=== PATIENT | male | born 1945 | race Two or more races ===

== ENCOUNTER 2020-05-07 14:18 | Outpatient (CLI) | payer MEDICARE ==
[2020-05-07] MEDS ORDERED: Magnevist 469MG/ML 20 ML VIAL ONE (16:30)
--- NOTE | 2020-05-07 17:18 | MRI ---
MRI THORACIC SPINE WITH AND WITHOUT CONTRAST: 05/07/20 HISTORY: 75-year-old male with malignant neoplasm of prostate. Whole body bone scan shows tiny focus of increa sed uptake to the right of midline at the mid to lower thoracic spine at approximately T8 or T9 level . FINDINGS: At center midline in the far anterior edge of the spinous process of T8 vertebra, there is an approxi mately 0.9 x 0.5 x 0.7 cm focus of signal void on all pulse sequences. No associated enhancement. Although this is of a similar level to the lesion found on the bone scan, this particular MRI lesion is located at midline, while the lesion found on nuclear medicine is slightly to the right of midline . This MRI lesion corresponds to a sclerotic focal lesion on CT of abdomen and pelvis of 02/29/20. There is an osseous lesion at the right posterior inferior aspect of the T8 vertebral body with sligh tly irregular and slightly ill-defined margins, measuring approximately 1.4 x 1.2 x 0.8 cm. It is het erogeneously T1 hypointense, has heterogeneous patchy moderate hyperintensity on the STIR sequence, w ith patchy heterogeneous enhancement. This probably corresponds to the lesion found on the bone scan. There is chronic anterior wedge compression deformity of T12 vertebral body with no bony retropulsion and no abnormal enhancement. Conus medullaris terminates at L1-2. The rest of the vertebral body hei ghts are maintained. There are small focal disc protrusions and/or disc/osteophyte complexes protruding into the anterior aspect of the spinal canal. These are tiny at T2-3 and T3-4. Small midline at T6-7. Broad based small to moderate sized, centrally and bilateral paracentrally at T7-8 and T8-9. No cord impingement at an y level. A combination of this disc protrusion and mild ligamentum flavum thickening causes mild to m oderate central spinal canal stenosis at T8-9. There is multilevel mild to moderate bilateral neurofo raminal stenosis. No syringohydromyelia. No bone marrow edema. 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 No abnormal enhancement in the intramedullary, extramedullary-intradural, extradural, or jennifer vertebral spaces. IMPRESSION: 1. A lesion at the right inferior posterior aspect of the T8 vertebral body on this MRI probably corresponds to the lesion found on the bone scan. This could either be an active Schmorl's node or a solitary bone metastasis. The former is slightly favored. 2. Incidental finding of an osteoblastic/sclerotic lesion at the anterior aspect of T8 spinous p rocess at midline. This is favored to represent a bone island rather than an osteoblastic metastasis. 3. Thoracic spondylosis. 4. Recommend serial follow-up MRIs of the thoracic spine with and without contrast to follow the lesion at the right inferior aspect of the T8 vertebral body, beginning in 4 to 6 months. POS: OFF
== END 2020-05-07 14:19 | disposition home or self-care (01) ==
LOC: BICMRI 14:18
PROVIDERS: ATTEND Urology
DX: C61 Malignant neoplasm of prostate (principal); M47.814 Spondylosis without myelopathy or radiculopathy, thoracic region; M48.8X4 Other specified spondylopathies, thoracic region
CPT/HCPCS: 72157; 82565; A9579

== ENCOUNTER 2020-05-19 12:48 | Outpatient (CLI) | payer MEDICARE ==
--- NOTE | 2020-05-19 16:22 | MRI ---
MRI PELVIS (PROSTATE) WITH AND WITHOUT IV CONTRAST AND EVALUATION ON INDEPENDENT 3D WORKSTATION: Date: 05/19/2020 HISTORY: Prostate cancer. FINDINGS: The prostate measures 4.3 x 3.8 x 4.4 cm with a volume of 38 mL. There is a 2.5 cm focal area of restricted diffusion and low intensity on ADC map in the peripheral z one, predominantly on the right, and a small portion extending to the left of midline at the level of the mid gland. There is capsular extension and involvement of the right neurovascular bundle. No suspicious findings are seen in the transitional zone. No pelvic lymphadenopathy is seen. Seminal vesicles are normal. The pelvic side wall is normal. The bone marrow signal in the pelvis bones is wi thin normal limits. IMPRESSION: PI-RADS 5 - Very high (clinically significant cancer is highly likely to be present). POS: OFF
== END 2020-05-19 12:49 | disposition home or self-care (01) ==
LOC: TBSIIMAG 12:48
PROVIDERS: ATTEND Urology
DX: C61 Malignant neoplasm of prostate (principal)
CPT/HCPCS: 72197

== ENCOUNTER 2020-07-31 08:23 | Outpatient (CLI) | payer MEDICARE ==
--- NOTE | 2020-07-31 13:24 | RAD ---
EXAM: XR Cystogram STANDARD PROVIDED CLINICAL HISTORY: Prostate cancer history of recent prostatectomy. Evaluate for bladder leak. COMPARISON: None FINDINGS: Approximately 150 mL of Isovue-370 contrast was instilled into the urinary bladder via a Rm cathet er. There is evidence of extravasation of contrast at the level of the neck of the urinary bladder and projecting posterior to the urinary bladder at the junction with the prosthetic urethra. Contrast was drained from the urinary bladder with contrast persisting posterior to the urinary bladder. AP, oblique, and lateral projections were obtained. IMPRESSION: Evidence of a leak near the the junction of the neck of the urinary bladder and prostatic urethra.
== END 2020-07-31 08:24 | disposition home or self-care (01) ==
LOC: RAD 08:23
PROVIDERS: ATTEND Urology
DX: C61 Malignant neoplasm of prostate (principal)
CPT/HCPCS: 51600; 74430

== ENCOUNTER 2021-05-06 10:10 | Outpatient (CLI) | payer MEDICARE | END 2021-05-06 10:11 | disposition home or self-care (01) | LOC: NM 10:10 | PROVIDERS: ATTEND Radiology Radiation Oncology | DX: C61 Malignant neoplasm of prostate (principal) | CPT/HCPCS: 78306; A9503 ==

== ENCOUNTER 2022-02-27 17:13 | Inpatient (IN) | payer MEDICARE ==
[2022-02-27] MEDS ORDERED: Cefepime 2 GM VIAL ONE (17:50)
[2022-02-27] MEDS ORDERED: Acetaminophen 500 MG TAB ONE (17:50)
[2022-02-27 18:00] LABS: #Basophils 0.1 thou/uL (0.0-0.2); #Eosinphils 0.1 thou/uL (0.0-0.7); #Lymphocytes 1.7 thou/uL (1.20-3.40); #Monocytes 0.9 thou/uL (0.11-0.59); #Neutrophils 8.5 thou/uL (1.40-6.50); %Basophils 0.6 % (0.0-1.0); %Eosinophils 0.5 % (0.0-10.0); %Lymphocytes 15.2 % (21.0-51.0); %Monocytes 7.7 % (0.0-10.0); %Neutrophils 75.9 % (42.0-75.0); Hemoglobin 13.5 g/dL (14.0-18.0); Mean Corpuscular HGB CONC 35.8 g/dL (32.0-36.0); Mean Corpuscular Hemoglobin 33.4 pg (27.0-31.0); Mean Corpuscular Volume 93.4 fL (78.0-98.0); Mean Platelet Volume 9.2 fL (7.4-10.4); Platelet Count 200 thou/uL (130-400); RBC Distribution Width 11.5 % (11.5-14.5); Red Blood Cell (RBC) Count 4.05 mill/uL (4.70-6.10); White Blood Cell (WBC) Count 11.2 thou/uL (4.8-10.8)
[2022-02-27] MEDS ORDERED: VANCOMYCIN 1.75 GM/500 ML BAG 1.75 GM in Premix Bag 1 BAG IVPB SCH (18:00)
[2022-02-27 18:14] LABS: PTT 27.9 sec (22.9-36.1); Prothrombin Time 13.5 sec (12.0-14.7)
[2022-02-27 18:16] LABS: D-Dimer Test 0.34 *mcg/mL (0.27-0.43)
[2022-02-27 18:21] LABS: ALT (SGPT) 20 U/L (8-55); AST (SGOT) 19 U/L (5-34); Alkaline Phosphatase 88 U/L (40-110); Anion Gap 18 mmol/L (10-20); BUN (Urea Nitrogen) 27 mg/dL (8.4-25.7); Calc. Creatinine Clearance 0 mL/min (70-130); Calcium 8.8 mg/dL (7.8-10.44); Carbon Dioxide 21 mmol/L (23-31); Chloride 100 mmol/L (98-107); Estimated GFR 55; Globulin 3.6 g/dL (2.4-3.5); Glucose 371 mg/dL (83-110); Lipase 77 U/L (8-78); Magnesium 1.9 mg/dL (1.6-2.6); Potassium 3.6 mmol/L (3.5-5.1); Protein, Total 7.6 g/dL (5.8-8.1); Sodium 135 mmol/L (136-145)
[2022-02-27 18:55] LABS: Bacteria/HPF None Seen HPF (None Seen); Bilirubin Negative (Negative); Blood, Urine 2+ (Negative); Clarity Clear (Clear); Glucose, Urine (Dipstick) Greater than 1000 mg/dL (Negative); Ketone, Urine 20 mg/dL (Negative); Leukocyte Negative Leu/uL (Negative); Nitrite Negative (Negative); Protein, Urine (Dipstick) Negative (Neg-Trace); Specific Gravity, Urine 1.021 (1.002-1.036); Squamous Epithelial 0-3 HPF (0-3); Urobilinogen Normal mg/dL (Less than 2); WBC/HPF 0-3 HPF (0-3); pH, Urine 5.5 (5.0-9.0)
[2022-02-27 19:47] LABS: SARS-CoV-2 NAA Rapid Test DETECTED (NotDetected)
[2022-02-27] MEDS ORDERED: HumaLOG 300 UNITS/3 ML VIAL SC PRN ×2 (20:27)
[2022-02-27] MEDS ORDERED: Dextrose 50% Abboject 50 ML SYRINGE SLOW IVP PRN (20:27)
[2022-02-27] MEDS ORDERED: Dextrose 5% in Water 1,000 ML IV PRN (20:27)
[2022-02-27] MEDS ORDERED: Ondansetron PF 4 MG/2 ML Vial IVP PRN (20:43)
[2022-02-27] MEDS ORDERED: Ondansetron ODT 4 MG TAB PO PRN (20:43)
[2022-02-27] MEDS ORDERED: Senokot S 8.6-50 MG TAB PO PRN (20:43)
[2022-02-27] MEDS ORDERED: Acetaminophen 325 MG TAB PO PRN (20:43)
[2022-02-27] MEDS ORDERED: guaiFENesin 200 MG TAB PO PRN (20:49)
[2022-02-27] MEDS ORDERED: Benzonatate 100 MG CAP PO PRN (20:49)
[2022-02-27 20:59] LABS: CRP (Inflammatory) 2.97 mg/dL (= or < 0.5)
[2022-02-27 21:24] VITALS: BMI 25.6
[2022-02-27] MEDS ORDERED: Enoxaparin Sodium 40 MG/0.4 ML SYRINGE SC SCH (21:45)
[2022-02-27 21:53] LABS: Troponin I Less than 0.010 ng/mL (< 0.028)
[2022-02-27] MEDS: HumaLOG 300 UNITS/3 ML VIAL SC PRN (21:56)
[2022-02-27] MEDS: Enoxaparin Sodium 40 MG/0.4 ML SYRINGE SC SCH (21:56)
[2022-02-27] MEDS: Sodium Chloride 0.9% 1,000 ML IV SCH (21:57)
[2022-02-28 00:11] LABS: Troponin I 0.013 ng/mL (< 0.028)
[2022-02-28 04:40] LABS: #Basophils 0.1 thou/uL (0.0-0.2); #Eosinphils 0.1 thou/uL (0.0-0.7); #Lymphocytes 1.3 thou/uL (1.20-3.40); #Monocytes 0.7 thou/uL (0.11-0.59); #Neutrophils 6.3 thou/uL (1.40-6.50); %Basophils 0.7 % (0.0-1.0); %Eosinophils 1.1 % (0.0-10.0); %Lymphocytes 15.2 % (21.0-51.0); %Monocytes 7.9 % (0.0-10.0); %Neutrophils 75.2 % (42.0-75.0); Hemoglobin 11.7 g/dL (14.0-18.0); Mean Corpuscular HGB CONC 34.9 g/dL (32.0-36.0); Mean Corpuscular Hemoglobin 32.9 pg (27.0-31.0); Mean Corpuscular Volume 94.2 fL (78.0-98.0); Mean Platelet Volume 8.8 fL (7.4-10.4); Platelet Count 162 thou/uL (130-400); RBC Distribution Width 11.5 % (11.5-14.5); Red Blood Cell (RBC) Count 3.57 mill/uL (4.70-6.10); White Blood Cell (WBC) Count 8.4 thou/uL (4.8-10.8)
[2022-02-28 05:00] LABS: Anion Gap 15 mmol/L (10-20); BUN (Urea Nitrogen) 19 mg/dL (8.4-25.7); Calc. Creatinine Clearance 57 mL/min (70-130); Carbon Dioxide 18 mmol/L (23-31); Chloride 106 mmol/L (98-107); Estimated GFR 69; Glucose 333 mg/dL (83-110); Potassium 3.4 mmol/L (3.5-5.1); Sodium 136 mmol/L (136-145)
[2022-02-28] MEDS: HumaLOG 300 UNITS/3 ML VIAL SC PRN ×4 (05:59→20:48)
[2022-02-28] MEDS: Dexamethasone 4 mg/ml Vial SLOW IVP SCH (09:25)
[2022-02-28] MEDS: Ascorbic Acid 500 mg Chewable Tablet PO SCH (09:25)
[2022-02-28] MEDS: Zinc Sulfate 220 MG CAP PO SCH (09:25)
[2022-02-28] MEDS: Sodium Chloride 0.9% 1,000 ML IV SCH (12:21)
[2022-03-01 04:44] LABS: #Lymphocytes 1.2 thou/uL (1.20-3.40); #Monocytes 0.5 thou/uL (0.11-0.59); %Basophils 0.1 % (0.0-1.0); %Eosinophils 0.2 % (0.0-10.0); %Lymphocytes 12.1 % (21.0-51.0); %Monocytes 4.8 % (0.0-10.0); %Neutrophils 82.8 % (42.0-75.0); Hemoglobin 11.7 g/dL (14.0-18.0); Mean Corpuscular Hemoglobin 31.4 pg (27.0-31.0); Mean Corpuscular Volume 95.2 fL (78.0-98.0); Platelet Count 166 thou/uL (130-400); RBC Distribution Width 11.5 % (11.5-14.5); Red Blood Cell (RBC) Count 3.72 mill/uL (4.70-6.10); White Blood Cell (WBC) Count 9.7 thou/uL (4.8-10.8)
[2022-03-01 05:03] LABS: ALT (SGPT) 21 U/L (8-55); AST (SGOT) 21 U/L (5-34); Albumin 3.4 g/dL (3.4-4.8); Alkaline Phosphatase 70 U/L (40-110); Anion Gap 15 mmol/L (10-20); BUN (Urea Nitrogen) 18 mg/dL (8.4-25.7); Bilirubin, Total 0.8 mg/dL (0.2-1.2); Calc. Creatinine Clearance 49 mL/min (70-130); Calcium 8.3 mg/dL (7.8-10.44); Carbon Dioxide 21 mmol/L (23-31); Chloride 106 mmol/L (98-107); Estimated GFR 57; Globulin 2.6 g/dL (2.4-3.5); Glucose 333 mg/dL (83-110); Magnesium 2.2 mg/dL (1.6-2.6); Sodium 138 mmol/L (136-145)
[2022-03-01] MEDS: HumaLOG 300 UNITS/3 ML VIAL SC PRN ×4 (05:43→21:59)
[2022-03-01] MEDS: Ascorbic Acid 500 mg Chewable Tablet PO SCH (09:16)
[2022-03-01] MEDS: Zinc Sulfate 220 MG CAP PO SCH (09:16)
[2022-03-01] MEDS: Insulin Glargine 30 UNITS/0.3 ML VIAL SC SCH (09:26)
[2022-03-01] MEDS: Dexamethasone 4 mg/ml Vial SLOW IVP SCH (09:26)
[2022-03-01] MEDS: Enoxaparin Sodium 40 MG/0.4 ML SYRINGE SC SCH (21:59)
[2022-03-02] MEDS: HumaLOG 300 UNITS/3 ML VIAL SC PRN ×2 (05:46→11:29)
[2022-03-02 06:30] LABS: #Basophils 0.1 thou/uL (0.0-0.2); #Lymphocytes 1.4 thou/uL (1.20-3.40); #Monocytes 0.5 thou/uL (0.11-0.59); #Neutrophils 9.4 thou/uL (1.40-6.50); %Eosinophils 0.1 % (0.0-10.0); %Lymphocytes 11.8 % (21.0-51.0); %Monocytes 4.8 % (0.0-10.0); %Neutrophils 82.4 % (42.0-75.0); Hemoglobin 10.9 g/dL (14.0-18.0); Mean Corpuscular Hemoglobin 31.6 pg (27.0-31.0); Mean Platelet Volume 9.4 fL (7.4-10.4); Platelet Count 170 thou/uL (130-400); RBC Distribution Width 11.4 % (11.5-14.5); Red Blood Cell (RBC) Count 3.45 mill/uL (4.70-6.10); White Blood Cell (WBC) Count 11.4 thou/uL (4.8-10.8)
[2022-03-02 06:54] LABS: ALT (SGPT) 19 U/L (8-55); AST (SGOT) 20 U/L (5-34); Albumin 3.2 g/dL (3.4-4.8); Alkaline Phosphatase 62 U/L (40-110); Anion Gap 13 mmol/L (10-20); BUN (Urea Nitrogen) 23 mg/dL (8.4-25.7); Bilirubin, Total 0.5 mg/dL (0.2-1.2); Calc. Creatinine Clearance 54 mL/min (70-130); Carbon Dioxide 22 mmol/L (23-31); Chloride 105 mmol/L (98-107); Estimated GFR 66; Globulin 2.8 g/dL (2.4-3.5); Glucose 245 mg/dL (83-110); Magnesium 2.1 mg/dL (1.6-2.6); Potassium 3.9 mmol/L (3.5-5.1); Sodium 136 mmol/L (136-145)
[2022-03-02] MEDS: Zinc Sulfate 220 MG CAP PO SCH (08:26)
[2022-03-02] MEDS: Insulin Glargine 30 UNITS/0.3 ML VIAL SC SCH (08:26)
[2022-03-02] MEDS: Ascorbic Acid 500 mg Chewable Tablet PO SCH (08:26)
[2022-03-02] MEDS: Dexamethasone 4 mg/ml Vial SLOW IVP SCH (08:27)
[2022-03-02 09:01] VITALS: BP 128/72; TEMP 97.9
[2022-03-02] MEDS ORDERED: Insulin Glargine 30 UNITS/0.3 ML VIAL SC STA (12:18)
== END 2022-03-02 13:57 | disposition home health service (06) | DRG 871 ==
LOC: ERS 17:13 → 2NO 19:38 → OBSVTOIN 03-01 13:27 → T4-B 03-02 03:00
PROVIDERS: ADMIT Internal Medicine; ATTEND Internal Medicine
PROC: 3E03329 Introduction of Other Anti-infective into Peripheral Vein, Percutaneous Approach (ICD-10-PCS; principal; 2022-02-27)
PROC: 8E0ZXY6 Isolation (ICD-10-PCS; 2022-02-27)
DX: A41.89 Other specified sepsis (principal); U07.1 COVID-19; J96.01 Acute respiratory failure with hypoxia; N30.00 Acute cystitis without hematuria; N17.9 Acute kidney failure, unspecified; E87.1 Hypo-osmolality and hyponatremia; C79.51 Secondary malignant neoplasm of bone; E11.9 Type 2 diabetes mellitus without complications; E78.5 Hyperlipidemia, unspecified; I10 Essential (primary) hypertension; C61 Malignant neoplasm of prostate; R29.6 Repeated falls; Z91.81 History of falling; Z79.4 Long term (current) use of insulin; Z79.899 Other long term (current) drug therapy; Z79.82 Long term (current) use of aspirin; Z79.51 Long term (current) use of inhaled steroids; Z79.84 Long term (current) use of oral hypoglycemic drugs; Z90.79 Acquired absence of other genital organ(s); Z98.42 Cataract extraction status, left eye; Z98.41 Cataract extraction status, right eye; Z87.891 Personal history of nicotine dependence
CPT/HCPCS: 36415; 36416; 70450; 71045; 72125; 80048; 80053; 81003; 81015; 82728; 83605; 83690; 83718; 83735; 83880; 84484; 85025; 85379; 85610; 85730; 86140; 87077; 87086; 87186; 93005; 94760; 96361; 96365; 96366; 96372; 96375; 96376; G0378; J0692; J1100; J1650; J1815; J3370; J7050

== ENCOUNTER 2022-04-30 09:10 | Outpatient (CLI) | payer MEDICARE ==
[2022-04-30] MEDS ORDERED: Iopamidol 370 76% 100 ML VIAL ONE (09:11)
== END 2022-04-30 09:11 | disposition home or self-care (01) ==
LOC: CT 09:10
PROVIDERS: ATTEND Internal Medicine Hematology & Oncology
DX: C79.51 Secondary malignant neoplasm of bone (principal); C61 Malignant neoplasm of prostate; N28.1 Cyst of kidney, acquired
CPT/HCPCS: 74177; 78306; 82565; A9503; Q9967

== ENCOUNTER 2022-10-18 08:25 | Outpatient (CLI) | payer MEDICARE ==
[2022-10-18] MEDS ORDERED: Magnevist 469MG/ML 20 ML VIAL ONE (09:44)
== END 2022-10-18 08:26 | disposition home or self-care (01) ==
LOC: TBSIIMAG 08:25
PROVIDERS: ATTEND Internal Medicine Hematology & Oncology
DX: C61 Malignant neoplasm of prostate (principal); C79.51 Secondary malignant neoplasm of bone; Z90.49 Acquired absence of other specified parts of digestive tract
CPT/HCPCS: 72197; A9579

== ENCOUNTER 2022-10-22 08:38 | Outpatient (CLI) | payer MEDICARE | END 2022-10-22 08:39 | disposition home or self-care (01) | LOC: NM 08:38 | PROVIDERS: ATTEND Internal Medicine Hematology & Oncology | DX: C61 Malignant neoplasm of prostate (principal); C79.51 Secondary malignant neoplasm of bone | CPT/HCPCS: 78306; A9503 ==

== ENCOUNTER 2023-03-25 08:03 | Outpatient (CLI) | payer MEDICARE ==
[2023-03-25] MEDS ORDERED: Iopamidol 370 76% 100 ML VIAL ONE (13:55)
== END 2023-03-25 08:04 | disposition home or self-care (01) ==
LOC: CT 08:03
PROVIDERS: ATTEND Internal Medicine Hematology & Oncology
DX: C61 Malignant neoplasm of prostate (principal); C79.51 Secondary malignant neoplasm of bone; I70.0 Atherosclerosis of aorta; I77.811 Abdominal aortic ectasia; N28.1 Cyst of kidney, acquired
CPT/HCPCS: 71260; 74177; 78306; A9503; Q9967